=== PATIENT | male | born 1960 | race Caucasian/White ===

== ENCOUNTER 2020-10-13 18:52 | Inpatient (IN) | payer OTHER, SELFPAY ==
[2020-10-13] VITALS (12 sets, daily range): BP systolic 106–126; BP diastolic 50–87; PULSE 77–148; RESP 18–26; TEMP 35.8–37.1; O2SAT 92–96; BMI 22.8
--- NOTE | ~2020-10-13 | XR_ITS ---
EXAMINATION: XR chest 1V portable DATE: 10/13/2020 20:01 INDICATION: Dyspnea. TECHNIQUE: A single frontal view of the chest was obtained. COMPARISON: Chest 2 views 11/12/2010 FINDINGS: Calcified right lung nodules are consistent with old granulomatous disease. There is mild s carring at the lung apices. There are mild airspace opacities in the lower lung zones. No pleural eff usion or pneumothorax. The heart size is normal. IMPRESSION: 1. Mild airspace opacities in the lower lung zones, consistent with atelectasis versus pneumonia. Reviewed, dictated and finalized at location A.
--- NOTE | ~2020-10-13 | CT_ITS ---
EXAMINATION: CTA chest PE protocol DATE: 10/13/2020 20:10 INDICATION: Shortness of breath. COVID-19 positive. TECHNIQUE: Computed tomography angiography (CTA) of the chest was performed with 100 mL Omnipaque-350 intravenous contrast timed to evaluate the pulmonary arteries. Coronal maximum intensity projection 3D-reconstructions were created by the technologist. Automated exposure control and iterative reconst ruction technique were employed. The dose-length product was 461.80 mGy-cm. COMPARISON: None. FINDINGS: There is mild scarring at the lung apices. There is mild emphysema. Calcified right lung no dules and calcified right hilar and mediastinal lymph nodes are consistent with old granulomatous dis ease. There are patchy groundglass opacities in all lobes with a peripheral and posterior predominanc e. No pleural effusion. The heart size is normal. There are coronary artery calcifications. No perica rdial effusion. There is no pulmonary embolus. There is mild right hilar lymphadenopathy, likely reac tive. Calcifications in the liver and spleen are consistent with old granulomatous disease. There are bridging endplate osteophytes at multiple levels in the spine, consistent with diffuse idiopathic sk eletal hyperostosis (DISH). IMPRESSION: 1. No pulmonary embolus. 2. Diffuse lung disease, consistent with COVID-19 pneumonia. 3. Mild emphysema. Reviewed, dictated and finalized at location A.
--- NOTE | 2020-10-13 19:08 | ECG_ITS ---
Measurements Intervals [place] Rate: 137 P: ME: 0 QRS: 256 QRSD: 135 T: 39 QT: 325 QTc: 492 Interpretive Statements ATRIAL FIBRILLATION WITH RAPID VENTRICULAR RESPONSE RIGHT AXIS DEVIATION RIGHT BUNDLE BRANCH BLOCK INFERIOR INFARCT, AGE INDETERMINATE BASELINE ARTIFACT- III, AVL, AVF ABNORMAL ECG Electronically Signed On 10-13-2020 20:39:20 CDT by Davie Pablo D.O.
--- NOTE | 2020-10-13 19:25 | ED.SOB ---
HPI - SOB/Dyspnea General Chief Complaint: Shortness of Breath/Dyspnea Stated Complaint: sob covid + Time Seen by Provider: 10/13/20 19:17 Related Data Home Medications Medication Instructions Recorded Confirmed aspirin 81 mg chewable tablet 81 mg PO DAILY 08/09/19 10/13/20 lisinopril 40 mg PO DAILY 10/13/20 10/13/20 metformin 1,000 mg PO DAILY 10/13/20 10/13/20 metoprolol succinate 100 mg PO DAILY 10/13/20 10/13/20 Allergies Allergy/AdvReac Type Severity Reaction Status Date / Time No Known Allergies Allergy Verified 10/13/20 19:02 [facility] Past Medical History Medical History (Updated 10/13/20 @ 21:03 by Mary Armijo MD) Nonalcoholic fatty liver disease Family History Family History (Updated 02/08/16 @ 23:19 by DOCTOR UNKNOWN) Sibling Family history of diabetes mellitus in first degree relative Family history of lung disease Family history of heart disease in male family member before age 55 Family history of coronary artery disease Father Family history of heart disease in male family member before age 55 Family history of coronary artery disease Mother Family history of heart disease in male family member before age 55 Family history of coronary artery disease Other Diabetes mellitus Family history of cardiovascular disease Hypertension Social History Social History Smoking packs per day: 2 Smoking cigarettes per day: 40.0 Years smoked: 20 Smoking pack-years: 40.00 Smoking status: Former smoker Tobacco type: cigarettes Second hand tobacco smoke exposure: No Smoking end date: 07/13/98 Alcohol intake: current Drinks per week: 20 Substance use: never Substance use type: does not use Gender identity (if verbalized by the patient): Male Course Vital Signs Vital signs: Vital Signs Temperature 37.1 C 10/13/20 18:53 Pulse Rate 109 H 10/13/20 18:53 Respiratory Rate 20 10/13/20 18:53 Blood Pressure 117/84 10/13/20 18:53 Pulse Oximetry 96 10/13/20 18:53 Temperature 37.1 C 10/13/20 18:59 Pulse Rate 80 10/13/20 21:47 Respiratory Rate 26 H 10/13/20 21:40 Blood Pressure 114/61 10/13/20 21:47 Pulse Oximetry 94 10/13/20 21:40 MDM - SOB/Dyspnea MDM Narrative Medical decision making narrative: Patient presents with shortness of breath and new onset A. fib with RVR. Labs, chest x-ray ordered. Further plan to follow Lab Data Result diagrams: 10/13/20 19:13 10/13/20 19:11 Labs: Lab Results 10/13/20 10/13/20 10/13/20 Range/Units 19:11 19:13 19:13 WBC 5.5 (4.5-10.0) K/mm3 RBC 4.76 (4.6-6.20) M/mm3 Hgb 16.0 (14.0-18.0) g/dL Hct 45.0 (42.0-52.0) % MCV 94.5 (80-100) fl MCH 33.6 (26-34) pg MCHC 35.6 (32-36) g/dl RDW 11.9 (11.5-14.5) % Plt Count 162 (150-375) k/mm3 MPV 10.1 (7.4-10.4) fl Immature Gran % (Auto) 0.7 H (0-0.5) % Neut % (Auto) 70.6 (45.5-73.1) % Lymph % (Auto) 19.3 (18.3-44.2) % Lipscomb % (Auto) 8.6 H (2.6-8.5) % Eos % (Auto) 0.4 (0-4.4) % Baso % (Auto) 0.4 (0.2-1.2) % Lymph # (Auto) 1.05 (0.9-3.2) K/mm3 Lipscomb # (Auto) 0.5 (0.1-0.6) K/mm3 Eos # (Auto) 0.0 (0-0.3) K/mm3 Baso # (Auto) 0.0 (0.0-0.1) K/mm3 Abs Immat Gran (auto) 0.04 H (0.00-0.031) K/mm3 Absolute Neuts (auto) 3.9 (1.3-6.7) K/mm3 Absolute Nucleated RBC 0.0 (0.0-0.012) K/mm3 Nucleated RBC % 0.0 (0.0-0.2) % PT 13.7 (11.1-14.7) Seconds INR 1.0 APTT 36.9 H (22.3-36.8) SECONDS D-Dimer 0.90 H (<0.48) ug/mL Sodium 131 L (137-145) mmol/L Potassium 4.1 (3.4-5.0) mmol/L Chloride 99 (98-107) mmol/L Carbon Dioxide 23 (22-30) mmol/L Anion Gap 9 (8-16) mmol/L BUN 18 (9-20) mg/dL Creatinine 0.70 (0.7-1.3) mg/dL Estim Creat Clear Calc 107 ml/min Estimated GFR > 60 (59 - ) Glucose 143 H (75-110) mg/d
[2020-10-13 19:26] LABS: Basophils Percent Auto 0.4 % (0.2-1.2); Eosinophils Percent Auto 0.4 % (0-4.4); Immature Granulocyte Absolute 0.04 K/mm3 (0.00-0.031); Immature Granulocyte Percent A 0.7 % (0-0.5); Lymphocytes Absolute Auto 1.05 K/mm3 (0.9-3.2); Lymphocytes Percent Auto 19.3 % (18.3-44.2); Mean Corpuscular HGB Conc 35.6 g/dl (32-36); Mean Corpuscular Hemoglobin 33.6 pg (26-34); Mean Corpuscular Volume 94.5 fl (80-100); Mean Platelet Volume 10.1 fl (7.4-10.4); Monocytes Absolute Auto 0.5 K/mm3 (0.1-0.6); Monocytes Percent Auto 8.6 % (2.6-8.5); Neutrophils Absolute Auto 3.9 K/mm3 (1.3-6.7); Neutrophils Percent Auto 70.6 % (45.5-73.1); Platelet Count Result 162 k/mm3 (150-375); Red Blood Count 4.76 M/mm3 (4.6-6.20); Red Cell Distribution Width 11.9 % (11.5-14.5); White Blood Count 5.5 K/mm3 (4.5-10.0)
[2020-10-13] MEDS: MAGNESIUM SULF 2 GM/WATER 50ML 2 GM/50 ML BAG IVPB (19:30)
[2020-10-13 19:36] LABS: Prothrombin Time 13.7 Seconds (11.1-14.7)
[2020-10-13 19:37] LABS: Partial Thromboplastin Time 36.9 SECONDS (22.3-36.8)
[2020-10-13 19:38] LABS: Alanine Aminotransferase 32 U/L (4-50); Albumin Level 3.8 g/dL (3.5-5.1); Alkaline Phosphatase 82 U/L (38-126); Anion Gap 9 mmol/L (8-16); Aspartate Amino Transferase 60 U/L (17-59); Bilirubin,Total 0.7 mg/dL (0.2-1.3); Blood Urea Nitrogen 18 mg/dL (9-20); Calcium 8.5 mg/dL (8.4-10.2); Carbon Dioxide 23 mmol/L (22-30); Chloride 99 mmol/L (98-107); Estimated CRCL calculation 107 ml/min; Estimated Glomerular Filt Rate > 60; Glucose 143 mg/dL (75-110); Potassium 4.1 mmol/L (3.4-5.0); Sodium 131 mmol/L (137-145)
[2020-10-13 19:41] LABS: Alveolar/Arterial O2 Gradient 52.5 mmHg; Base Excess ABG -1.8 mEq/l (+/-2.0); Device ROOM AIR; Fractional Inspired Oxygen 21 %; HCO3 ABG 20.5 mEq/l (22.0-26.0); Oxygen Content ABG 20.8 %vol (16.0-22.0); Oxygen Saturation ABG 93.3 % (95.0-100.0); Oxyhemoglobin 91.6 % THb (90.0-100.0); PCO2 ABG 29.3 mmHg (35.0-45.0); PO2 ABG 62.1 mmHg (80.0-100.0); PO2 FiO2 Ratio Arterial Blood 2.96 %; Site Drawn RIGHT BRACHIAL; Total Hemoglobin 16.2 g/dL (12.0-18.0); pH ABG 7.463 (7.350-7.450)
[2020-10-13 19:58] LABS: NT Pro B Type Natriuretic Pept 1450 PG/ML (5-100); Troponin I 0.037 ng/mL (0.000-0.034)
[2020-10-13] MEDS: dilTIAZem HCl INJ 25 MG/5 ML VIAL 10 MG IV PUSH (20:20)
[2020-10-13] MEDS: ENOXAPARIN 100 MG/ML SYRINGE 90 MG SUB-Q (20:57)
[2020-10-13] MEDS: ONDANSETRON INJ 4 MG/2 ML VIAL IV PUSH (21:12)
--- NOTE | 2020-10-13 21:46 | ECG_ITS ---
Measurements Intervals [place] Rate: 84 P: 52 ME: 150 QRS: -73 QRSD: 134 T: 0 QT: 404 QTc: 478 Interpretive Statements SINUS RHYTHM POSSIBLE LEFT ATRIAL ENLARGEMENT LEFT AXIS DEVIATION RIGHT BUNDLE BRANCH BLOCK BASELINE ARTIFACT- III, AVL, AVF ABNORMAL ECG Electronically Signed On 10-14-2020 7:21:43 CDT by Davie Pablo D.O.
--- NOTE | 2020-10-13 22:31 | PM.IMHP ---
H&P: HPI History of Present Illness Date/Time: 10/13/20 22:31 Chief Complaint: Worsening shortness of breath over the past 2 days Narrative: This is a pleasant 60-year-old diabetic male with known past medical history of chronic hypertension who presented to the hospital [facility] with increased shortness of breath over the past few days. The patient is known to have been diagnosed with COVID-19 recently and describes having COVID like symptoms for the past 2 weeks. He remarks that he got his COVID vaccine and a few days later he started to have intermittent fevers, a continuous hacking dry cough, exertional shortness of breath, generalized malaise, and body aches. Tonight the patient denies any chest pain, palpitations, abdominal pain, nausea, vomiting, dysuria, hematuria, rectal bleeding, or lower extremity swelling. He previous history of coronary artery disease. The patient was evaluated emergency room and found to be in rapid atrial fibrillation. He denies any past history of cardiac arrhythmias. Patient was treated with Cardizem IV and placed on a Cardizem IV drip. He was also anticoagulated with therapeutic Lovenox in the ER [facility]. While in the emergency room [facility] the patient converted back into a sinus rhythm. On my encounter with the patient [facility] he is complaining of a mild cough but otherwise has no other complaints. Review of Systems Review of Systems: All systems reviewed & are unremarkable except as noted in HPI and below PMFSH Past Medical History Medical History (Updated 10/13/20 @ 22:40 by Ganesh Gaspar MD) Chronic hypertension Mixed hyperlipidemia Nonalcoholic fatty liver disease Type 2 diabetes mellitus without complications Surgical History Surgical History (Updated 10/13/20 @ 22:35 by Ganesh Gaspar MD) History of cholecystectomy Family History Family History (Updated 02/08/16 @ 23:19 by DOCTOR UNKNOWN) Sibling Family history of diabetes mellitus in first degree relative Family history of lung disease Family history of heart disease in male family member before age 55 Family history of coronary artery disease Father Family history of heart disease in male family member before age 55 Family history of coronary artery disease Mother Family history of heart disease in male family member before age 55 Family history of coronary artery disease Other Diabetes mellitus Family history of cardiovascular disease Hypertension Social History Social History Smoking packs per day: 2 Smoking cigarettes per day: 40.0 Years smoked: 20 Smoking pack-years: 40.00 Smoking status: Former smoker Tobacco type: cigarettes Second hand tobacco smoke exposure: No Smoking end date: 07/13/98 Alcohol intake: current Drinks per week: 3 Substance use: never Substance use type: does not use Gender identity (if verbalized by the patient): Male Spiritual care concerns: No Meds Home Medications and Allergies Home Medications Medication Instructions Recorded Confirmed Type aspirin 81 mg chewable tablet 81 mg PO DAILY 08/09/19 10/13/20 History lisinopril 40 mg PO DAILY 10/13/20 10/13/20 History metformin 1,000 mg PO DAILY 10/13/20 10/13/20 History metoprolol succinate 100 mg PO DAILY 10/13/20 10/13/20 History Allergies Allergy/AdvReac Type Severity Reaction Status Date / Time No Known Allergies Allergy Verified 10/13/20 19:02 Vital Signs Vital Signs - 24 hr 10/13/20 18:53 10/13/20 18:59 10/13/20 19:32 Temperature 37.1 C 37.1 C Pulse Rate 109 H 109 H 128 H Respiratory Rate 20 20 18 Blood Pressure 117/84 117/84 126/50 L Pulse Oximetry 96 96 94 10/13/20 20:21 10/13/20 20:42 10/13/20 20:58 Temperature Pulse Rate 148 H 120 H 115 H Respiratory Rate 25 H Blood Pressure 126/50 L 109/63 117/61 Pulse Oximetry 92 10/13/20 21:40 10/13/20 21:47 10/13/20 22:10 Temperature P
[2020-10-13 22:40] LABS: Glucose Point of Care 135 (65-105)
--- NOTE | 2020-10-13 23:07 | ADMGEN ---
This patient, Paulo Monge, was admitted to IMU Room 210 ay 2223. Patient/family oriented to hospital policies and general routines including ID bracelet, bed and alarms, visiting hours, pain management, procedures, bathroom and other care routines, personal items, smoking policy, room service/diet, and visiting hours. Information on how to activate the Rapid Response Team has been discussed. Patient/Family are encouraged to report perceived risks to care and to ask questions if they do not understand what they are told or what they should do.
[2020-10-14] VITALS (14 sets, daily range): BP systolic 122–133; BP diastolic 60–75; PULSE 56–91; RESP 16–24; TEMP 36–36.9; O2SAT 87–98
[2020-10-14 02:02] LABS: Troponin I 0.041 ng/mL (0.000-0.034)
[2020-10-14 08:21] LABS: Glucose Point of Care 108 (65-105)
--- NOTE | 2020-10-14 10:00 | PM.CNCAR ---
Assessment and Plan Additional Plan 60-year-old man with: Tachycardic and irregular rhythm on presentation with coughing and shortness of breath in a Jen apparently documented to have waters virus recently. For the reasons I dictated above I am not convinced that this was actually atrial fibrillation although that is certainly how his initial electrocardiogram might be interpreted on casual inspection. Obviously now he is clearly in sinus rhythm. I will watch his rhythm while he is in the hospital and we will review his echocardiogram once that is done tomorrow. At this time I am not going to treat him with specific antiarrhythmic therapy unless we see obvious evidence of atrial fib while he is in the hospital. Plans regarding treatment of waters virus defer to the primary team Americo Muller MD [facility] History of Present Illness History of Present Illness Consult date/time: 10/14/20 10:00 Consult reason: atrial fibrillation Reason For Visit: Covid pneumonia, elevated troponin Narrative: This is a 60-year-old man I am seeing today at the request of the hospitalist because of atrial fibrillation and troponin levels that are out of normal range. The patient states he is not known to have any cardiac problems before this any normally gets his medical care from a PCP down in [place]. He recently was unfortunately found to have Coronavirus and has been having symptoms of viral illness for the last couple of weeks or so. These are well detailed in the H and P and include symptoms of dry hacking cough sometimes a cough productive of some thick green mucus some intermittent subjective fevers and symptoms of malaise and generalized myalgias. Apparently he received his 1st COVID vaccine and shortly after that became ill and was tested positive for a waters virus. Last night he was apparently coughing more significantly in became more short of breath so he came to the emergency room here for further evaluation. In the emergency room he was found to be tachycardic his electrocardiogram demonstrates an irregular rhythm which was interpreted as atrial fib with RVR. While this is possible it is certainly possible that he had a chaotic atrial rhythm such is an 80 since on a couple of the cardiac cycles there appear to be obvious P waves which is not consistent with the diagnosis of atrial fibrillation. In any event he was treated with diltiazem his he became less tachycardic eventually restored into sinus rhythm. With respect to symptoms he was not aware of tachycardia or palpitations at the time of admission to the hospital. An echocardiogram has been ordered and of course is pending at the time of this dictation on the Thursday. He has been systemically anticoagulated with therapeutic dose of Lovenox. Chest x-ray show some very modest congestion according to the the radiology report I was not particularly impressed with findings of pneumonia on his x-ray. His baseline medical problems include hypertension and [id number] diabetes which he has had for more than 10 years he believes they are both under fairly good control. He was a previous cigarette smoker for many years but quit about 20 years ago. In the setting of all this his evaluation included sampling troponin for some reason with levels of 0.03 and 0.04. Review of Systems Constitutional: Constitutional: Reports lethargy Eyes: Eyes: Reports no additional eye complaints ENT: Reports system reviewed and no additional complaints, except as documented Cardiovascular: Cardiovascular: Reports no additional cardiovascular complaints Respiratory: Respiratory: Reports as per HPI and Reports cough Gastrointestinal: Gastrointestinal: Reports no additional gastrointestinal complaints Musculoskeletal: Musculoskeletal: Reports no additional musculoskeletal complaints Integumentary/Breasts: Skin/Breast: Reports system reviewed and no additional complaints, except as docu Neurologic:
[2020-10-14] MEDS: ENOXAPARIN 80 MG/0.8 ML SYRINGE SUB-Q (10:17)
[2020-10-14] MEDS: ASPIRIN 81 MG CHEWABLE TABLET PO (10:17)
[2020-10-14] MEDS: metFORMIN HCL XR 500 MG TAB.SR.24H 1000 MG PO (10:17)
[2020-10-14] MEDS: lisinopriL 20 MG TABLET 40 MG PO (10:18)
[2020-10-14] MEDS: guaiFENesin/DEXTROMETHORPHAN 10 ML UDC 5 ML PO ×2 (10:19→20:10)
--- NOTE | 2020-10-14 10:35 | PM.IMPN ---
Progress Note: A&P Assessment and Plan (1) Tachyarrhythmia: Code(s): R00.0 - Tachycardia, unspecified Status: Acute Assessment and Plan: EKG findings upon presentation appeared consistent with atrial fibrillation. Patient felt to be in rapid ventricular response with heart rate in the 120s. Tachycardia improved with Cardizem drip. Upon further evaluation by Cardiology, findings not felt to be consistent with atrial fibrillation. At this time, he is currently in sinus rhythm and rate is well controlled. Telemetry reviewed. Appreciate cardiology evaluation. Echocardiogram has been ordered and is pending. Continue to monitor on telemetry At this time, no need for initiation of antiarrhythmic agents per cardiology recommendations Therapeutic Lovenox was initiated due to concerns for new onset atrial fibrillation. This has been discontinued. Will await further recommendations from cardiology. (2) COVID-19: Code(s): U07.1 - COVID-19 Status: Acute Assessment and Plan: He complains of symptoms a viral illness ongoing for approximately 2 weeks. He cannot recall when he tested positive for COVID-19, but notes that his isolation period is scheduled to end tomorrow. CXR showed mild airspace opacities in the lower lung zones. COVID-19 pneumonia. He is maintaining adequate oxygenation on room air. He is afebrile. Continue isolation precautions. Will attempt to find further information regarding duration of illness prior to discontinuing isolation precautions. Supportive care including bronchodilators, expectorants, incentive spirometry, and antipyretics. Supplemental O2 available as needed with goal saturation 90% or above. No COVID-19 specific therapies including Remdesivir or dexamethasone at this time as he has no supplemental oxygen requirement. (3) Chronic hypertension: Code(s): I10 - Essential (primary) hypertension Status: Chronic Assessment and Plan: BP reviewed and has been fairly well controlled. Most readings in the 120s systolic. Last BP 141/65. Continue metoprolol Monitor BP trends. (4) Type 2 diabetes mellitus without complications: Qualifiers: Diabetes mellitus half-way insulin use: without intermission coordinator use Qualified Code(s): E11.9 - Type 2 diabetes mellitus without complications Code(s): E11.9 - Type 2 diabetes mellitus without complications Status: Chronic Assessment and Plan: No prior A1c available for review. Blood sugars reviewed and have been well controlled. Accu-Cheks, sliding scale insulin coverage, and hypoglycemic protocol continue metformin Check A1c (5) Elevated troponin: Code(s): R77.8 - Other specified abnormalities of plasma proteins Status: Acute Assessment and Plan: Minimally elevated upon presentation at 0.037 and 0.041. Likely secondary to tachyarrhythmia. He was entirely asymptomatic. ACS not suspected. Appreciate cardiology input. Additional Plan Patient is hemodynamically stable. Will plan to downgrade to med/surg floor with telemetry monitoring. Cardiology in agreement. Subjective Date/time seen: 10/14/20 10:35 Interval history: Date of service: 10/14/2020 Paulo Monge is a 60-year-old male with history of hypertension, hyperlipidemia, pei-qiqjsgw-vewdhpbzo type 2 diabetes mellitus, and nonalcoholic fatty liver disease who is seen in follow-up for COVID-19. He feels about the same today. Overall he feels weak and extremely fatigued. His appetite has been very poor and he has not been drinking enough. This has caused him to feel a bit lightheaded. He is also coughing quite frequently and describes a dry, hacking cough. He denies any significant shortness of breath or ORTIZ. No fever, chills, nausea, vomiting. He describes diminished sense of taste, but his sense of smell is intact. He denies chest pain or palpitations. No wheezing. Denies lower extr
[2020-10-14] MEDS: METOPROLOL SUCCINATE EXT REL 100 MG TABCR PO (10:36)
[2020-10-14 12:44] LABS: Glucose Point of Care 153 (65-105)
--- NOTE | 2020-10-14 18:09 | PC.NURSE ---
This patient, Paulo Monge, was transferred to [facility] on 10/14/20 at 1809. Personal belongings sent with patient. Report given to Guillermina Trimble RN. Appropriate documentation sent with patient.
--- NOTE | 2020-10-14 18:18 | PC.NURSE ---
This patient, Paulo Monge, was received from [IMU ] on 10/14/20 at 1818. Patient/family oriented to unit policies and routines
[2020-10-14 19:03] LABS: Glucose Point of Care 102 (65-105)
[2020-10-14] MEDS: guaiFENesin 12 HR 600 MG TABCR PO (20:10)
[2020-10-14] MEDS: MELATONIN 3 MG TABLET PO (20:10)
[2020-10-14 21:57] LABS: Glucose Point of Care 111 (65-105)
[2020-10-15] VITALS (12 sets, daily range): BP systolic 112–139; BP diastolic 64–78; PULSE 73–86; RESP 18; TEMP 36.5–36.8; O2SAT 88–95
--- NOTE | 2020-10-15 | ECHO_ITS ---
Patient Info Name: Paulo Monge Age: 60 years : 1960 Gender: Male Ht: 73 in Wt: 198 lbs BSA: 2.16 m2 HR: 81 bpm BP: 122 / 64 mmHg Heart Rhythm: Sinus Rhythm Exam Date: 10/15/2020 2:59 PM Exam Location: [facility] Patient Status: Inpatient Admit Date: 10/15/2020 Staff Ordering Physician: Ganesh Gaspar MD [facility] Supervisor: Goldy Jaramillo RDCS, RT Attending Provider: Anna Chaney PA-C Referring Physician: Chasity HAN; Exam Type: CA echo doppler color flow Study Info Indications I48.1 - Persistent atrial fibrillation Complete two-dimensional, color flow and Doppler transthoracic echocardiogram is performed. Strain analysis performed. Summary 1. Complete two-dimensional, color flow and Doppler transthoracic echocardiogram is performed. 2. Left ventricular systolic function is normal, estimated at 55-60%. 3. Left ventricular chamber dimension is normal. 4. Left atrial chamber dimension is moderately enlarged. 5. There is mild MR with 2 discrete jets seen on doppler. Left Ventricle Left ventricular chamber dimension is normal. Left ventricular systolic function is normal, estimated at 55-60%. The left ventricular diastolic function is normal. Right Ventricle Right ventricular chamber dimension is normal. Left Atria Left atrial chamber dimension is moderately enlarged. Right Atria Right atrial chamber dimension is normal. Aortic Valve The aortic valve is normal. Pulmonic Valve The pulmonic valve is not well visualized. Mitral Valve The mitral valve has normal leaflets. There is mild mitral valve regurgitation. Tricuspid Valve The tricuspid valve leaflets are normal. Pericardium/Pleural The pericardium appears normal. Aorta The aortic root size at the sinus of Valsalva is normal. Left Ventricular Outflow Tract Name Value Normal LVOT 2D LVOT Diameter 2.0 cm LVOT Doppler LVOT Peak Gradient 5 mmHg LVOT Mean Gradient 3 mmHg LVOT VTI 23 cm LVOT VTI/AV VTI Ratio 0.8 LVOT Stroke Volume 73 ml LVOT CO 5.9 l/min LVOT CI 2.7 l/min/m2 Mitral Valve Name Value Normal MV Doppler MV Peak Gradient 1 mmHg MV Mean Gradient 0 mmHg MV Decel [place] 303 cm/s2 MV PHT 68 ms MV Area (PHT) 3.2 cm2 4.0-5.0 MV Area (Cont Eq VTI) 7.6 cm2 MV Diastolic Function MV E Peak Velocity 71 cm/s MV A Peak Velocity 58 cm/s
[2020-10-15 06:20] LABS: Alanine Aminotransferase 45 U/L (4-50); Albumin Level 3.7 g/dL (3.5-5.1); Alkaline Phosphatase 68 U/L (38-126); Anion Gap 6 mmol/L (8-16); Aspartate Amino Transferase 76 U/L (17-59); Bilirubin,Total 0.7 mg/dL (0.2-1.3); Blood Urea Nitrogen 27 mg/dL (9-20); CRP 6.9 mg/dL (<1.0); Calcium 8.2 mg/dL (8.4-10.2); Carbon Dioxide 29 mmol/L (22-30); Chloride 97 mmol/L (98-107); Estimated CRCL calculation 83 ml/min; Estimated Glomerular Filt Rate > 60; Glucose 96 mg/dL (75-110); Sodium 132 mmol/L (137-145)
[2020-10-15 06:22] LABS: Hemoglobin A1C 6.2 % (<5.7)
[2020-10-15 08:15] LABS: Glucose Point of Care 94 (65-105)
[2020-10-15] MEDS: metFORMIN HCL XR 500 MG TAB.SR.24H 1000 MG PO (08:21)
[2020-10-15] MEDS: ENOXAPARIN 40 MG/0.4 ML SYRINGE SUB-Q (08:22)
[2020-10-15] MEDS: ASPIRIN 81 MG CHEWABLE TABLET PO (08:22)
[2020-10-15] MEDS: lisinopriL 20 MG TABLET 40 MG PO (08:22)
[2020-10-15] MEDS: guaiFENesin 12 HR 600 MG TABCR PO ×2 (08:23→23:31)
[2020-10-15] MEDS: METOPROLOL SUCCINATE EXT REL 100 MG TABCR PO (08:23)
[2020-10-15 11:42] LABS: Glucose Point of Care 124 (65-105)
--- NOTE | 2020-10-15 13:50 | PM.IMPN ---
Progress Note: A&P Assessment and Plan (1) Tachyarrhythmia: Code(s): R00.0 - Tachycardia, unspecified Status: Acute Assessment and Plan: EKG findings upon presentation initially concerning for atrial fibrillation. Patient felt to be in rapid ventricular response with heart rate in the 120s. Tachycardia improved with Cardizem drip. Upon further evaluation by Cardiology, findings not felt to be consistent with atrial fibrillation. At this time, he is currently in sinus rhythm and rate is well controlled. Telemetry reviewed. Appreciate cardiology evaluation. Echocardiogram has been ordered and is pending completion. Continue to monitor on telemetry At this time, no need for initiation of antiarrhythmic agents per cardiology recommendations. (2) COVID-19: Code(s): U07.1 - COVID-19 Status: Acute Assessment and Plan: He complains of symptoms a viral illness ongoing for approximately 2 weeks. He does have positive for COVID-19 on 10/07/20. CXR showed mild airspace opacities in the lower lung zones consistent with COVID-19 pneumonia. He remains afebrile. He is currently requiring 1 L supplemental oxygen and maintaining adequate O2 sats Continue isolation precautions. Initiate IV dexamethasone given new oxygen requirements. Hold off on IV Remdesivir at this time. Initiate if worsening/increased O2 requirements. Supportive care including bronchodilators, expectorants, incentive spirometry, and antipyretics. Supplemental O2 available as needed with goal saturation 90% or above. (3) Chronic hypertension: Code(s): I10 - Essential (primary) hypertension Status: Chronic Assessment and Plan: BP reviewed and is well controlled. Most readings in the 120s systolic. Last BP 112/64 Continue metoprolol Monitor BP trends. (4) Type 2 diabetes mellitus without complications: Qualifiers: Diabetes mellitus exterminator termite insulin use: without chcf use Qualified Code(s): E11.9 - Type 2 diabetes mellitus without complications Code(s): E11.9 - Type 2 diabetes mellitus without complications Status: Chronic Assessment and Plan: A1c is 6.2. Blood sugars reviewed and have been well controlled. Accu-Cheks, sliding scale insulin coverage, and hypoglycemic protocol continue metformin (5) Elevated troponin: Code(s): R77.8 - Other specified abnormalities of plasma proteins Status: Acute Assessment and Plan: Minimally elevated upon presentation at 0.037 and 0.041. Likely secondary to tachyarrhythmia. He was entirely asymptomatic. ACS not suspected. Appreciate cardiology input. Subjective Date/time seen: 10/15/20 13:50 Interval history: Date of service: 10/15/2020 Paulo Monge is a 60-year-old male with history of hypertension, hyperlipidemia, udd-mnbvviq-jmblisevi type 2 diabetes mellitus, and nonalcoholic fatty liver disease who is seen in follow-up for COVID-19. He continues to feel poorly. He is fatigued. He is having dyspnea on exertion. Reports coughing if he talking more frequently, moving, or sitting up. He denies orthopnea, PND, wheezing, chest pain or tightness, or palpitations. He still feels a bit weak. Denies N/V, fever, chills, dizziness, lightheadedness. He had a loose stool today. Sense of taste is slowly improving. He still endorses poor appetite. Review of Systems Review of Systems: All systems reviewed & are unremarkable except as noted in HPI and below Exam Narrative: Exam Narrative: Mr. Monge is a well-nourished, well-appearing 60-year-old male who is lying supine in bed. He appears comfortable and is in NARD. Neuro: awake, alert and oriented x4, speech clear, no focal neuro deficits noted HEENMT: normocephalic, atraumatic, EOMI, sclerae anicteric, moist oral mucosa, tongue midline, nares patent Neck: supple, no lymphadenopathy Respiratory: diminished breath sounds bilatera
--- NOTE | 2020-10-15 16:02 | PM.PNCARD ---
Progress Note: A&P Additional Plan 60-year-old man with: Mild mitral valve regurgitation which has resulted in some left atrial enlargement. He is not symptomatic of his mitral valve disease as far as I can tell. As I am not convinced the patient had atrial fibrillation I would not recommend anticoagulating him at this time. He is maintaining sinus rhythm since admission and has no other cardiac complaints or issues. I believe at this time I am fine with this gentleman being discharged I will follow has mitral valve regurgitation in the office a longitudinal. There is a good chance he will not require surgical/procedural intervention for this since it is mild unless this changes significantly in the follow-up. If you have specific cardiac questions other than this please let me know I will see that he gets an appointment to see me in follow-up in the office. Americo Muller MD [facility] Subjective Date/time seen: Date of service: 10/15/20 16:02 Interval history: Follow-up visit in this 60-year-old man with: Atrial tachyarrhythmia felt to represent atrial fibrillation on admission but on careful review of 12 lead ECG I was not convinced of this. Patient is also in the hospital with what appears to be mild COVID pneumonia. The patient is comfortable this afternoon and has no complaints. Discussed echocardiographic findings which are coarse dictated separately. He has normal left ventricular systolic function and a small amount of MR with some left atrial dilation. No other history of cardiac pathology. Exam Const: General: comfortable and no acute distress HENMT: Mouth: Yes moist mucous membranes Eyes: Sclera: sclerae normal Pupils: Equal, round and reactive pupils present Neck: Neck: supple and no JVD Thyroid: thyroid normal Resp: Effort & Inspection: normal respiratory effort Auscultation: clear to auscultation bilaterally Cardio: Rate: regular rate Rhythm: regular rhythm Other: No audible cardiac murmur GI: Auscultation: normal bowel sounds Skin: General skin exam: normal color Neuro: Cognition (Neuro): normal cognition Extrem: General: normal to inspection Objective Data Vital Signs Vital Signs: Vital Signs - 24 hr 10/14/20 17:40 10/14/20 18:47 10/14/20 19:59 Temperature 36.2 C L 36.9 C 36.6 C Pulse Rate 74 73 73 Respiratory Rate 22 H 16 18 Blood Pressure 123/66 133/69 124/63 Pulse Oximetry 87 L 92 91 10/14/20 20:00 10/14/20 23:46 10/15/20 00:00 Temperature 36.5 C Pulse Rate 73 71 74 Respiratory Rate 18 Blood Pressure 129/60 Pulse Oximetry 95 10/15/20 03:57 10/15/20 04:00 10/15/20 08:00 Temperature 36.5 C 36.8 C Pulse Rate 73 82 85 Respiratory Rate 18 18 Blood Pressure 122/64 132/72 Pulse Oximetry 92 90 10/15/20 08:23 10/15/20 12:00 Temperature 36.6 C Pulse Rate 80 77 Respiratory Rate 18 Blood Pressure 112/64 Pulse Oximetry 91 Intake/Output Intake/Output: Intake & Output 10/12/20 10/13/20 10/14/20 10/15/20 23:59 23:59 23:59 23:59 Intake Total 1105 1200 Output Total 400 Balance 705 1200 Meds/Results Medications: Active Medications Generic Name Dose Route Start Last Admin Trade Name Freq PRN Reason Stop Dose Admin Aspirin 81 mg 10/14/20 08:00 10/15/20 08:22 Aspirin 81 Mg Chewable Tablet PO 81 mg DAILY@0800 PRASHANTH Administration Dexamethasone Sodium Phosphate 6 mg 10/16/20 09:00 Dexamethasone Sod Phos Inj 4 Mg/Ml Vial IV PUSH 10/25/20 09:01 DAILY [facility] Dextrose 12.5 gm 10/13/20 22:39 Dextrose 50% 25 Gm/50 Ml Syringe IV PUSH PRN PRN Hypoglycemia Protocol Enoxaparin Sodium 40 mg 10/15/20 09:00 10/15/20 08:22 Enoxaparin 40 Mg/0.4 Ml Syringe SUB-Q 40 mg DAILY PRASHANTH Administration Glucagon 1 mg 10/13/20 22:39 Glucagon For Inj 1 Mg Vial IM PRN PRN Hypoglycemia Protocol Glucose 15 gm 10/13/20 22:39 Glucose Oral Gel 15 Gm Of Glucse In 37.5 Gm Tube PO VA
[2020-10-15 17:21] LABS: Glucose Point of Care 93 (65-105)
[2020-10-15] MEDS: guaiFENesin/DEXTROMETHORPHAN 10 ML UDC 5 ML PO (18:11)
[2020-10-15] MEDS: HYDROcodone/acetaminophen (*CRX) 5-325 MG TABLET 1 TAB PO (23:30)
[2020-10-15] MEDS: MELATONIN 3 MG TABLET PO (23:31)
[2020-10-16] VITALS (20 sets, daily range): BP systolic 94–129; BP diastolic 46–76; PULSE 72–147; RESP 20–128; TEMP 35.7–36.7; O2SAT 91–96
--- NOTE | 2020-10-16 02:42 | ECG_ITS ---
Measurements Intervals [place] Rate: 141 P: [place]: 0 QRS: -85 QRSD: 134 T: 7 QT: 329 QTc: 505 Interpretive Statements ATRIAL FIBRILLATION WITH RAPID VENTRICULAR RESPONSE RIGHT BUNDLE BRANCH BLOCK LEFT ANTERIOR FASCICULAR BLOCK ABNORMAL ECG Electronically Signed On 10-16-2020 6:50:13 CDT by Davie Pablo D.O.
--- NOTE | 2020-10-16 03:21 | PC.NURSE ---
Patient heart rate was in the 130's. Notified MD and a EKG was done. MD evaluated EKG and patient is to be transferred to IMU. Vitals, see chart. Report has been sent. No complaints of chest pain at this time.
--- NOTE | 2020-10-16 04:38 | PC.NURSE ---
This patient, Paulo Monge, was received from [ ] on 10/16/20 at [id number]. Patient/family oriented to unit policies and routinesfrom 3rd med surg report from jose guadalupe
[2020-10-16] MEDS: dilTIAZem HCl INJ 25 MG/5 ML VIAL 10 MG IV PUSH (04:40)
[2020-10-16 05:38] LABS: Hematocrit 39.3 % (42.0-52.0); Hemoglobin 13.9 g/dL (14.0-18.0); Mean Corpuscular HGB Conc 35.4 g/dl (32-36); Mean Corpuscular Hemoglobin 34.2 pg (26-34); Mean Corpuscular Volume 96.8 fl (80-100); Mean Platelet Volume 10.1 fl (7.4-10.4); Platelet Count Result 250 k/mm3 (150-375); Red Blood Count 4.06 M/mm3 (4.6-6.20); Red Cell Distribution Width 11.8 % (11.5-14.5); White Blood Count 6.9 K/mm3 (4.5-10.0)
[2020-10-16 05:40] LABS: Alanine Aminotransferase 73 U/L (4-50); Albumin Level 3.6 g/dL (3.5-5.1); Alkaline Phosphatase 77 U/L (38-126); Anion Gap 5 mmol/L (8-16); Aspartate Amino Transferase 87 U/L (17-59); Bilirubin,Total 0.7 mg/dL (0.2-1.3); Blood Urea Nitrogen 18 mg/dL (9-20); CRP 6.9 mg/dL (<1.0); Calcium 8.5 mg/dL (8.4-10.2); Carbon Dioxide 30 mmol/L (22-30); Chloride 96 mmol/L (98-107); Estimated CRCL calculation 83 ml/min; Estimated Glomerular Filt Rate > 60; Glucose 98 mg/dL (75-110); Lactate Dehydrogenase 920 U/L (313-618); Potassium 3.9 mmol/L (3.4-5.0); Sodium 131 mmol/L (137-145)
[2020-10-16] MEDS: dilTIAZem HCl INJ 25 MG/5 ML VIAL 15 MG IV PUSH (05:48)
[2020-10-16 08:50] LABS: Glucose Point of Care 110 (65-105)
[2020-10-16] MEDS: DEXAMETHASONE SOD PHOS INJ 4 MG/ML VIAL 6 MG IV PUSH (09:33)
[2020-10-16] MEDS: METOPROLOL SUCCINATE EXT REL 100 MG TABCR PO (09:33)
[2020-10-16] MEDS: metFORMIN HCL XR 500 MG TAB.SR.24H 1000 MG PO (09:33)
[2020-10-16] MEDS: ENOXAPARIN 40 MG/0.4 ML SYRINGE SUB-Q ×2 (09:33→12:04)
[2020-10-16] MEDS: lisinopriL 20 MG TABLET 40 MG PO (09:33)
[2020-10-16] MEDS: guaiFENesin 12 HR 600 MG TABCR PO ×2 (09:34→21:15)
[2020-10-16] MEDS: ASPIRIN 81 MG CHEWABLE TABLET PO (09:34)
--- NOTE | 2020-10-16 09:58 | P.PNIM_ITS ---
Progress Note: A&P Assessment and Plan (1) Acute respiratory failure with hypoxia: Code(s): J96.01 - Acute respiratory failure with hypoxia Status: Acute Assessment and Plan: Likely secondary to COVID-19 pneumonia. Chest CTA negative for pulmonary embolism but does demonstrate patchy groundglass opacities in all lobes with a peripheral and posterior predominance and mild emphysema. * Continue supplemental oxygen as needed to maintain oxygen saturation >90%, wean as tolerated * Further plan detailed below (2) Atrial fibrillation with rapid ventricular response: Code(s): I48.91 - Unspecified atrial fibrillation Status: Resolved Assessment and Plan: EKG findings upon presentation initially concerning for atrial fibrillation and he was treated with cardizem gtt. He converted to sinus rhythm 10/13. Yesterday evening, he subsequently developed atrial fibrillation with RVR so cardizem gtt was initiated and he was transferred to the IMU. Likely provoked by acute respiratory illness. TSH normal. Echocardiogram performed 10/15/20 demonstrates normal LV systolic function with EF estimated at 55-60%, normal diastolic function, and mild mitral regurgitation with moderate left atrial enlargement. * Appreciate cardiology input * Discussed with cardiology and will initiate therapeutic lovenox * Continue cardizem gtt and metoprolol succinate. Cardiology following. * Continue telemetry monitoring (3) COVID-19: Code(s): U07.1 - COVID-19 Status: Acute Assessment and Plan: He complains of symptoms a viral illness ongoing for approximately 2 weeks prior to admission. He tested positive for COVID-19 on 10/07/20. CXR showed mild airspace opacities in the lower lung zones consistent with COVID-19 pneumonia. He remains afebrile. Oxygen requirements have increased to 6 liters per nasal cannula. * Continue isolation precautions. * Dexamethasone initiated today (10/16/20 - day 07/22) * Remdesivir initiated today (10/16/20 - day 1) * Supportive care including bronchodilators, expectorants, incentive spirometry, and antipyretics. * Supplemental O2 available as needed with goal saturation 90% or above * Trend acute phase reactants (4) Chronic hypertension: Code(s): I10 - Essential (primary) hypertension Status: Chronic Assessment and Plan: BP reviewed and is well controlled. Most recent BP 115/62. * Continue metoprolol and lisinopril * Monitor BP trends and adjust treatment as necessary (5) Type 2 diabetes mellitus without complications: Qualifiers: Diabetes mellitus group home insulin use: without group home use Qualified Code(s): E11.9 - Type 2 diabetes mellitus without complications Code(s): E11.9 - Type 2 diabetes mellitus without complications Status: Chronic Assessment and Plan: A1c is 6.2. Blood sugars reviewed and are well-controlled. * Accu-Cheks, sliding scale insulin coverage, and hypoglycemic protocol * Continue metformin (6) Elevated troponin: Code(s): R77.8 - Other specified abnormalities of plasma proteins Status: Acute Assessment and Plan: Minimally elevated upon presentation at 0.037 and 0.041. Likely secondary to tachyarrhythmia. He was entirely asymptomatic. ACS not suspected. Management per cardiology. Subjective Date/time seen: 10/16/20 09:58 Mr. Monge is a 60 y.o. male with PMH of hypertension, hyperlipidemia, cja-fectnsd-gjxcgwwic type 2 diabetes mellitus, and nonalcoholic fatty liver disease who is seen in follow-up
--- NOTE | 2020-10-16 09:58 | PM.IMPN ---
Progress Note: A&P Assessment and Plan (1) Acute respiratory failure with hypoxia: Code(s): J96.01 - Acute respiratory failure with hypoxia Status: Acute Assessment and Plan: Likely secondary to COVID-19 pneumonia. Chest CTA negative for pulmonary embolism but does demonstrate patchy groundglass opacities in all lobes with a peripheral and posterior predominance and mild emphysema. Continue supplemental oxygen as needed to maintain oxygen saturation >90%, wean as tolerated Further plan detailed below (2) Atrial fibrillation with rapid ventricular response: Code(s): I48.91 - Unspecified atrial fibrillation Status: Resolved Assessment and Plan: EKG findings upon presentation initially concerning for atrial fibrillation and he was treated with cardizem gtt. He converted to sinus rhythm 10/13. Yesterday evening, he subsequently developed atrial fibrillation with RVR so cardizem gtt was initiated and he was transferred to the IMU. Likely provoked by acute respiratory illness. TSH normal. Echocardiogram performed 10/15/20 demonstrates normal LV systolic function with EF estimated at 55-60%, normal diastolic function, and mild mitral regurgitation with moderate left atrial enlargement. Appreciate cardiology input Discussed with cardiology and will initiate therapeutic lovenox Continue cardizem gtt and metoprolol succinate. Cardiology following. Continue telemetry monitoring (3) COVID-19: Code(s): U07.1 - COVID-19 Status: Acute Assessment and Plan: He complains of symptoms a viral illness ongoing for approximately 2 weeks prior to admission. He tested positive for COVID-19 on 10/07/20. CXR showed mild airspace opacities in the lower lung zones consistent with COVID-19 pneumonia. He remains afebrile. Oxygen requirements have increased to 6 liters per nasal cannula. Continue isolation precautions. Dexamethasone initiated today (10/16/20 - day 07/22) Remdesivir initiated today (10/16/20 - day 1) Supportive care including bronchodilators, expectorants, incentive spirometry, and antipyretics. Supplemental O2 available as needed with goal saturation 90% or above Trend acute phase reactants (4) Chronic hypertension: Code(s): I10 - Essential (primary) hypertension Status: Chronic Assessment and Plan: BP reviewed and is well controlled. Most recent BP 115/62. Continue metoprolol and lisinopril Monitor BP trends and adjust treatment as necessary (5) Type 2 diabetes mellitus without complications: Qualifiers: Diabetes mellitus mcc insulin use: without termite helper use Qualified Code(s): E11.9 - Type 2 diabetes mellitus without complications Code(s): E11.9 - Type 2 diabetes mellitus without complications Status: Chronic Assessment and Plan: A1c is 6.2. Blood sugars reviewed and are well-controlled. Accu-Cheks, sliding scale insulin coverage, and hypoglycemic protocol Continue metformin (6) Elevated troponin: Code(s): R77.8 - Other specified abnormalities of plasma proteins Status: Acute Assessment and Plan: Minimally elevated upon presentation at 0.037 and 0.041. Likely secondary to tachyarrhythmia. He was entirely asymptomatic. ACS not suspected. Management per cardiology. Subjective Date/time seen: 10/16/20 09:58 Mr. Monge is a 60 y.o. male with PMH of hypertension, hyperlipidemia, wan-stjxqjq-edtiietxg type 2 diabetes mellitus, and nonalcoholic fatty liver disease who is seen in follow-up for COVID-19 pneumonia and atrial fibrillation with RVR. Overnight, the patient developed atrial fibrillation with RVR and was started on cardizem gtt and transferred to the IMU. He is doing okay today. He endorses fatigue and he has episodes where he feels short of breath while at rest as well as with exertion. He notes cough productive of clear sputum. His appetite is poor but he is tole
[2020-10-16] MEDS: REMDESIVIR 200 MG/NS 250 ML 200 MG/250 ML BAG 250 MG IVPB (12:04)
[2020-10-16 12:53] LABS: Glucose Point of Care 146 (65-105)
[2020-10-16 17:20] LABS: Glucose Point of Care 223 (65-105)
[2020-10-16] MEDS: INSULIN ASPART (*BKC) 100 UNITS/ML SUB-Q (17:46)
--- NOTE | 2020-10-16 17:47 | PM.PNCARD ---
Progress Note: A&P Assessment and Plan (1) Atrial fibrillation with rapid ventricular response: Code(s): I48.91 - Unspecified atrial fibrillation Status: Resolved Assessment and Plan: A rapid earlier today, improved with increasing diltiazem infusion to 15 milligrams/hour. BP stable. Continue Toprol XL 100 mg daily. Heart rate adequately controlled at this time. As duration of AFib unknown avoid amiodarone if possible. Continue systemic anticoagulation for stroke risk reduction. Continue to monitor BP closely and or evidence of bleeding. (2) Acute respiratory failure with hypoxia: Code(s): J96.01 - Acute respiratory failure with hypoxia Status: Acute Assessment and Plan: Per hospitalist service. Significant O2 supplementation, no distress. EF 55-60% by echocardiogram personally reviewed. Mild MR moderate left atrial enlargement. (3) COVID-19: Code(s): U07.1 - COVID-19 Status: Acute Assessment and Plan: As above. 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 Subjective Date/time seen: Date of service: 10/16/20 17:47 Interval history: Follow-up visit in this 60-year-old man with: Follow-up for atrial fibrillation with rapid ventricular response Feels okay. Shortness of breath, fatigue. Denies chest pain. Improved on increasing diltiazem drip up to 15 milligrams/hour in addition to oral metoprolol. COVID-19 pneumonia receiving dexamethasone and Remdesivir. Review of Systems Constitutional: Constitutional: Reports lethargy Eyes: Eyes: Reports no additional eye complaints ENT: Reports system reviewed and no additional complaints, except as documented Cardiovascular: Cardiovascular: Reports no additional cardiovascular complaints Respiratory: Respiratory: Reports as per HPI and Reports cough Gastrointestinal: Gastrointestinal: Reports no additional gastrointestinal complaints Musculoskeletal: Musculoskeletal: Reports no additional musculoskeletal complaints Integumentary/Breasts: Skin/Breast: Reports system reviewed and no additional complaints, except as docu Neurologic: Reports system reviewed and no additional complaints, except as documented Endocrine: Endocrine: Reports no additional endocrine complaints Hematologic/Lymphatic: Hematologic/Lymphatic: Reports no additional hematologic/lymphatic complaints Allergic/Immunologic: Allergic/Immunologic: Reports no additional allergic/immunologic complaints Exam Const: General: comfortable and no acute distress HENMT: Mouth: Yes moist mucous membranes Eyes: Sclera: sclerae normal Pupils: Equal, round and reactive pupils present Neck: Neck: supple and no JVD Thyroid: thyroid normal Other: Carotid pulses are normal there are no bruits audible over the neck Resp: Effort & Inspection: normal respiratory effort Auscultation: clear to auscultation bilaterally Cardio: Rate: tachycardic Rhythm: abnormal rhythm irregularly irregular Other: No audible cardiac murmur GI: Auscultation: normal bowel sounds Skin: General skin exam: normal color Neuro: Cranial nerves: Yes Equal, round and reactive pupils present Cognition (Neuro): normal cognition Extrem: General: normal to inspection Other: Good pulses no peripheral edema Objective Data Vital Signs Vital Signs: Vital Signs - 24 hr 10/15/20 18:15 10/15/20 18:38 10/15/20 19:57 Temperature Pulse Rate 86 Respiratory Rate 18 Blood Pressure Pulse Oximetry 88 L 91 91 10/15/20 20:00 10/15/20 23:47 10/16/20 00:00 Temperature 36.5 C 36.6 C Pulse Rate 81 80 125 H Respiratory Rate 18 18 Blood Pressure 130/78 139/70 Pulse Oximetry 91 95 10/16/20 02:29 10/16/20 03:19 10/16/20 04:00 Temperature 36.4 C Pulse Rate 124 H 120 H Respiratory Rate 128 H 20 Blood Pressure 128/76 112/65 Pulse Oximetry 93 10/16/20 04:40 10/16/20 05:00 10/16/20 06:14 Temperature
[2020-10-16 20:13] LABS: Glucose Point of Care 213 (65-105)
[2020-10-16] MEDS: ENOXAPARIN 80 MG/0.8 ML SYRINGE SUB-Q (21:15)
[2020-10-16] MEDS: MELATONIN 3 MG TABLET PO (21:15)
[2020-10-17] VITALS (15 sets, daily range): BP systolic 103–114; BP diastolic 50–63; PULSE 62–101; RESP 12–20; TEMP 36.1–36.5; O2SAT 87–98
[2020-10-17 05:03] LABS: Hematocrit 37.7 % (42.0-52.0); Hemoglobin 13.5 g/dL (14.0-18.0); Mean Corpuscular HGB Conc 35.8 g/dl (32-36); Mean Platelet Volume 10.4 fl (7.4-10.4); Platelet Count Result 273 k/mm3 (150-375); Red Blood Count 3.97 M/mm3 (4.6-6.20); Red Cell Distribution Width 11.7 % (11.5-14.5); White Blood Count 6.3 K/mm3 (4.5-10.0)
[2020-10-17 05:33] LABS: Alanine Aminotransferase 68 U/L (4-50); Albumin Level 3.5 g/dL (3.5-5.1); Alkaline Phosphatase 70 U/L (38-126); Anion Gap 5 mmol/L (8-16); Aspartate Amino Transferase 58 U/L (17-59); Bilirubin,Total 0.7 mg/dL (0.2-1.3); Blood Urea Nitrogen 21 mg/dL (9-20); CRP 14.6 mg/dL (<1.0); Calcium 8.7 mg/dL (8.4-10.2); Carbon Dioxide 28 mmol/L (22-30); Chloride 97 mmol/L (98-107); Creatine Kinase 51 U/L (55-170); Estimated CRCL calculation 92 ml/min; Estimated Glomerular Filt Rate > 60; Glucose 150 mg/dL (75-110); Lactate Dehydrogenase 798 U/L (313-618); Magnesium 2.1 mg/dL (1.6-2.3); Potassium 3.9 mmol/L (3.4-5.0); Sodium 130 mmol/L (137-145)
[2020-10-17 08:21] LABS: Glucose Point of Care 137 (65-105)
[2020-10-17] MEDS: ENOXAPARIN 80 MG/0.8 ML SYRINGE SUB-Q ×2 (09:34→20:19)
[2020-10-17] MEDS: guaiFENesin 12 HR 600 MG TABCR PO (09:35)
[2020-10-17] MEDS: METOPROLOL SUCCINATE EXT REL 100 MG TABCR PO (09:35)
[2020-10-17] MEDS: DEXAMETHASONE SOD PHOS INJ 4 MG/ML VIAL 6 MG IV PUSH (09:35)
[2020-10-17] MEDS: metFORMIN HCL XR 500 MG TAB.SR.24H 1000 MG PO (09:35)
[2020-10-17] MEDS: REMDESIVIR 100 MG/NS 250 ML 100 MG/250 ML BAG 250 MG IVPB (09:35)
[2020-10-17] MEDS: ASPIRIN 81 MG CHEWABLE TABLET PO (09:35)
[2020-10-17] MEDS: lisinopriL 20 MG TABLET 40 MG PO (09:35)
--- NOTE | 2020-10-17 10:15 | PM.IMPN ---
Progress Note: A&P Assessment and Plan (1) Acute respiratory failure with hypoxia: Code(s): J96.01 - Acute respiratory failure with hypoxia Status: Acute Assessment and Plan: Likely secondary to COVID-19 pneumonia. Chest CTA negative for pulmonary embolism but does demonstrate patchy groundglass opacities in all lobes with a peripheral and posterior predominance and mild emphysema. He required up to 6 liters per nasal cannula yesterday and is down to 3 liters per nasal cannula today. Continue supplemental oxygen as needed to maintain oxygen saturation >90%, wean as tolerated Further plan detailed below (2) Atrial fibrillation with rapid ventricular response: Code(s): I48.91 - Unspecified atrial fibrillation Status: Resolved Assessment and Plan: EKG findings upon presentation initially concerning for atrial fibrillation and he was treated with cardizem gtt. He converted to sinus rhythm 10/13. The evening of 10/16/20, he developed atrial fibrillation with RVR so cardizem gtt was initiated and he was transferred to the IMU. Likely provoked by acute respiratory illness. TSH normal. Echocardiogram performed 10/15/20 demonstrates normal LV systolic function with EF estimated at 55-60%, normal diastolic function, and mild mitral regurgitation with moderate left atrial enlargement. Appreciate cardiology input Continue therapeutic lovenox Continue cardizem gtt and metoprolol succinate. Cardiology following with management deferred to cardiology. Continue telemetry monitoring (3) COVID-19: Code(s): U07.1 - COVID-19 Status: Acute Assessment and Plan: He complains of symptoms a viral illness ongoing for approximately 2 weeks prior to admission. He tested positive for COVID-19 on 10/07/20. CXR showed mild airspace opacities in the lower lung zones consistent with COVID-19 pneumonia. He remains afebrile. He is on 3 liters per nasal cannula. Continue isolation precautions. Dexamethasone initiated today (10/16/20 - day 2/10) Remdesivir initiated today (10/16/20 - day 2) Supportive care including bronchodilators, expectorants, incentive spirometry, and antipyretics. Supplemental O2 available as needed with goal saturation 90% or above Trend acute phase reactants (4) Chronic hypertension: Code(s): I10 - Essential (primary) hypertension Status: Chronic Assessment and Plan: BP reviewed and are a bit on the soft side, likely due to cardizem gtt. Most recent BP 103/56. Continue metoprolol and lisinopril, decrease lisinopril to 20mg Monitor BP trends and adjust treatment as necessary (5) Type 2 diabetes mellitus without complications: Qualifiers: Diabetes mellitus usp insulin use: without usp use Qualified Code(s): E11.9 - Type 2 diabetes mellitus without complications Code(s): E11.9 - Type 2 diabetes mellitus without complications Status: Chronic Assessment and Plan: A1c is 6.2. Blood sugars reviewed and are increasing with two readings in the 200s. Likely exacerbated by steroids. Accu-Cheks, sliding scale insulin coverage, and hypoglycemic protocol Continue metformin Add lantus 10 units qHS (6) Elevated troponin: Code(s): R77.8 - Other specified abnormalities of plasma proteins Status: Acute Assessment and Plan: Minimally elevated upon presentation at 0.037 and 0.041. Likely secondary to tachyarrhythmia. He was entirely asymptomatic. ACS not suspected. Management per cardiology. Subjective Date/time seen: 10/17/20 10:15 Mr. Monge is a 60 y.o. male with PMH of hypertension, hyperlipidemia, ssg-amcejyr-cqrbirhsa type 2 diabetes mellitus, and nonalcoholic fatty liver disease who is seen in follow-up for COVID-19 pneumonia and atrial fibrillation with RVR. He is doing well today. Heart rate has been well controlled on cardizem gtt. Dyspnea has improved and he did get out of bed
--- NOTE | 2020-10-17 11:21 | PM.PNCARD ---
Progress Note: A&P Assessment and Plan (1) Atrial fibrillation with rapid ventricular response: Code(s): I48.91 - Unspecified atrial fibrillation Status: Resolved Assessment and Plan: Heart rate well controlled on diltiazem infusion to 15 milligrams/hour. Will not reduce at this time unless BP does not tolerate. Reduce lisinopril to improve BP tolerance. BP stable otherwise. Continue Toprol XL 100 mg daily. Heart rate adequately controlled at this time. Continue systemic anticoagulation for stroke risk reduction. Continue to monitor BP closely and or evidence of bleeding. Continue course for now. When further stable will attempt to wean and transition to oral regimen. (2) Acute respiratory failure with hypoxia: Code(s): J96.01 - Acute respiratory failure with hypoxia Status: Acute Assessment and Plan: Per hospitalist service. Significant O2 supplementation, no distress. EF 55-60% by echocardiogram personally reviewed. Mild MR moderate left atrial enlargement. (3) COVID-19: Code(s): U07.1 - COVID-19 Status: Acute Assessment and Plan: As above. 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 Subjective Date/time seen: date of service: 10/17/20 11:21 Interval history: Follow-up visit in this 60-year-old man with: Follow-up for atrial fibrillation with rapid ventricular response Feels okay. Shortness of breath, fatigue. Denies chest pain. Improved on increasing diltiazem drip up to 15 milligrams/hour in addition to oral metoprolol. COVID-19 pneumonia receiving dexamethasone and Remdesivir. Review of Systems Constitutional: Constitutional: Reports lethargy Eyes: Eyes: Reports no additional eye complaints ENT: Reports system reviewed and no additional complaints, except as documented Cardiovascular: Cardiovascular: Reports no additional cardiovascular complaints Respiratory: Respiratory: Reports as per HPI and Reports cough Gastrointestinal: Gastrointestinal: Reports no additional gastrointestinal complaints Musculoskeletal: Musculoskeletal: Reports no additional musculoskeletal complaints Integumentary/Breasts: Skin/Breast: Reports system reviewed and no additional complaints, except as docu Neurologic: Reports system reviewed and no additional complaints, except as documented Endocrine: Endocrine: Reports no additional endocrine complaints Hematologic/Lymphatic: Hematologic/Lymphatic: Reports no additional hematologic/lymphatic complaints Allergic/Immunologic: Allergic/Immunologic: Reports no additional allergic/immunologic complaints Exam Const: General: comfortable and no acute distress HENMT: Mouth: Yes moist mucous membranes Eyes: Sclera: sclerae normal Pupils: Equal, round and reactive pupils present Neck: Neck: supple and no JVD Thyroid: thyroid normal Other: Carotid pulses are normal there are no bruits audible over the neck Resp: Effort & Inspection: normal respiratory effort Auscultation: clear to auscultation bilaterally Cardio: Rate: regular rate Rhythm: abnormal rhythm irregularly irregular Other: No audible cardiac murmur GI: Auscultation: normal bowel sounds Skin: General skin exam: normal color Neuro: Cranial nerves: Yes Equal, round and reactive pupils present Cognition (Neuro): normal cognition Extrem: General: normal to inspection Other: Good pulses no peripheral edema Objective Data Vital Signs Vital Signs: Vital Signs - 24 hr 10/16/20 12:00 10/16/20 13:03 10/16/20 13:59 Temperature 36.7 C Pulse Rate 116 H 95 Respiratory Rate 22 H Blood Pressure 94/70 L Pulse Oximetry 95 93 10/16/20 14:00 10/16/20 16:00 10/16/20 17:35 Temperature 35.7 C L Pulse Rate 114 H 72 103 H Respiratory Rate 20 Blood Pressure 99/46 L Pulse Oximetry 95 10/16/20 18:00 10/16/20 20:00 10/16/20 22:00 Temperature 36.7 C Pulse Rate 114 H 91 74 R
--- NOTE | 2020-10-17 11:25 | PM.TDS ---
Transfer Discharge Sum: Prov Provider Date of admission: 10/15/20 14:23 Primary care physician: John Tinajero MD Admitting clinician: Ganesh Gaspar MD Consults: 10/13/20 22:34 Consult to Physician Routine Comment: Consulting Provider: Sarah Flannery manager call center/MD group to consult: Cardiology Reason for consultation: New onset atrial fibrillation with RVR Has provider been notified: Yes DS: Admitting Diagnosis Admitting Diagnosis Admitting Diagnosis: COVID-19, Atrial fibrillation with RVR DS: Discharge Diagnosis Discharge Diagnosis (1) Acute respiratory failure with hypoxia: Code(s): J96.01 - Acute respiratory failure with hypoxia Status: Acute Assessment and Plan: Likely secondary to COVID-19 pneumonia. Chest CTA negative for pulmonary embolism but does demonstrate patchy groundglass opacities in all lobes with a peripheral and posterior predominance and mild emphysema. He required up to 6 liters per nasal cannula yesterday and is down to 3 liters per nasal cannula today. (2) Atrial fibrillation with rapid ventricular response: Code(s): I48.91 - Unspecified atrial fibrillation Status: Resolved Assessment and Plan: EKG findings upon presentation initially concerning for atrial fibrillation and he was treated with cardizem gtt. He converted to sinus rhythm 10/13. The evening of 10/16/20, he developed atrial fibrillation with RVR so cardizem gtt was initiated and he was transferred to the IMU. Likely provoked by acute respiratory illness. TSH normal. Echocardiogram performed 10/15/20 demonstrates normal LV systolic function with EF estimated at 55-60%, normal diastolic function, and mild mitral regurgitation with moderate left atrial enlargement. Cardiology recommended to continue metoprolol succinate, cardizem gtt and lovenox for now with hopeful transition to oral rate regimen when HR more stable. Given unknown chronicity with atrial fibrillation on arrival, pt is not a candidate for cardioversion at this time. (3) COVID-19: Code(s): U07.1 - COVID-19 Status: Acute Assessment and Plan: He complained of symptoms of a viral illness ongoing for approximately 2 weeks prior to admission. He tested positive for COVID-19 on 10/07/20. CXR showed mild airspace opacities in the lower lung zones consistent with COVID-19 pneumonia. He remained afebrile. He required up to 6 liters 4/6 and was weaned to 3 liters later that day which he remained on. Dexamethasone and remdesivir were initiated 10/16/20 and he remained on both. Preliminary blood cultures demonstrate NGTD with final results pending. (4) Chronic hypertension: Code(s): I10 - Essential (primary) hypertension Status: Chronic Assessment and Plan: BP reviewed and are a bit on the soft side, likely due to cardizem gtt. Lisinopril was decreased to 20mg given need for ongoing cardizem gtt. Metoprolol succinate was continued. (5) Type 2 diabetes mellitus without complications: Qualifiers: Diabetes mellitus oysterman insulin use: without oysterman use Qualified Code(s): E11.9 - Type 2 diabetes mellitus without complications Code(s): E11.9 - Type 2 diabetes mellitus without complications Status: Chronic Assessment and Plan: A1c is 6.2. Blood sugars reviewed and are increasing with two readings in the 200s. Likely exacerbated by steroids. Lantus 10 units qHS was added for the evening of 10/17/20. (6) Elevated troponin: Code(s): R77.8 - Other specified abnormalities of plasma proteins Status: Acute Assessment and Plan: Minimally elevated upon presentation at 0.037 and 0.041. Likely secondary to tachyarrhythmia. He was entirely asymptomatic. ACS not suspected. Management per cardiology. Transfer Discharge Sum: Med Medications Active and Home Medications: Home Medications aspirin 81 mg chewable tablet 81 mg PO DAILY 08/09/19 [Hist
[2020-10-17 12:16] LABS: Glucose Point of Care 149 (65-105)
[2020-10-17 17:17] LABS: Glucose Point of Care 149 (65-105)
[2020-10-17 20:16] LABS: Glucose Point of Care 183 (65-105)
[2020-10-17] MEDS: guaiFENesin/DEXTROMETHORPHAN 10 ML UDC 5 ML PO (20:19)
[2020-10-17] MEDS: INSULIN GLARGINE (*BKC) 100 UNITS/ML 10 UNITS SUB-Q (20:27)
--- NOTE | 2020-10-17 21:46 | PC.NURSE ---
Patient transferred via [facility] to [facility] room 811. Additional updates provided to Sev.
== END 2020-10-17 21:40 | disposition short-term general hospital (02) | DRG 177 ==
LOC: ANHED 21:19 → ANHIMU 10-14 02:53 → ANH3MEDSUR 10-14 18:07 → ANHIMU 10-16 07:03 → ANH3MEDSUR 10-19 14:59 → ANHIMU 10-19 14:59
PROVIDERS: Emergency Medicine; Physician Assistant; Admitting Provider Family Medicine; Emergency Provider Emergency Medicine; PCP Family Medicine; Visit Provider Physician Assistant
DX: U07.1 COVID-19 (principal); J12.82 Pneumonia due to coronavirus disease 2019; J96.01 Acute respiratory failure with hypoxia; I34.0 Nonrheumatic mitral (valve) insufficiency; I48.91 Unspecified atrial fibrillation; R77.8 Other specified abnormalities of plasma proteins; J43.9 Emphysema, unspecified; I10 Essential (primary) hypertension; E11.9 Type 2 diabetes mellitus without complications; E78.2 Mixed hyperlipidemia; K76.0 Fatty (change of) liver, not elsewhere classified; Z79.82 Long term (current) use of aspirin; Z79.84 Long term (current) use of oral hypoglycemic drugs; Z79.899 Other long term (current) drug therapy; Z87.891 Personal history of nicotine dependence
CPT/HCPCS: 36415; 36600; 71045; 71275; 80053; 82550; 82728; 82805; 83036; 83615; 83735; 83880; 84443; 84484; 85025; 85027; 85380; 85610; 85730; 86140; 87040; 93005; 93306; 94667; 96365; 96366; 96367; 96372; 96375; 99285; A9270; J1100; J1650; J1815; J2405; J3475; Q9967